=== PATIENT | female | born 1980 | race Two or more races ===

== ENCOUNTER 2017-04-09 19:39 | Emergency (ER) | payer MEDICARE ==
[~2017-04-09] VITALS: Ht 165.1 cm; Wt 89.3 kg
[2017-04-09 19:42] VITALS: BP 142/82
[2017-04-09] MEDS ORDERED: INSU100C5 SQ-INSULIN (20:33)
[2017-04-09] MEDS ORDERED: INSU100V8 SQ (20:33)
== END 2017-04-09 20:43 | disposition home or self-care (01) ==
LOC: ED 20:37
DX: L02.811 Cutaneous abscess of head [any part, except face] (principal); E11.9 Type 2 diabetes mellitus without complications
CPT/HCPCS: 10060; 99283